=== PATIENT | female | born 1940 | race Caucasian/White ===

== ENCOUNTER → 2016-09-16 | Outpatient (CLI) | payer MEDICARE, OTHER ==
[~2016-09-16] MED LIST: ALPHAGAN-P5 ML OU; ALTACE DPS5 MG PO; ASA CHILDREN'S81 MG PO; CELEXA DPS20 MG PO; CITRACAL + D E1 EACH PO; FENOFIBRATE145 MG PO; FLEXERIL-DPS10 MG PO; MAALOX DPS30 ML PO; METFORMIN HCL500 M2 PO; NORCO 5-325 TA1 EACH PO; OMEGA-3 DPS1000 MG PO; OSTEO BI-FLEX1 EAC1 PO; OXY IR DPS5 MG PO; PROTONIX40 MG PO; TOPROL XL100 MG PO; TRICOR145 MG PO; TYLENOL DPS325 MG PO; ULTRAM DPS50 MG PO; ZOCOR DPS40 MG PO; ZYLOPRIM-DPS100 MG PO
== END | disposition home or self-care (01) ==
LOC: PTH.S 09:02
DX: Z01.818 Encounter for other preprocedural examination (principal)

== ENCOUNTER 2016-10-01 05:39 | Inpatient (IN) | payer MEDICARE, OTHER ==
[~2016-10-01] VITALS: Ht 165.1 cm; Wt 77.7 kg
--- NOTE | ~2016-10-01 | OR ---
ADMIT: 10/01/2016 RM/LOC: 526 [facility] MR#: [id number] [address] [address] JENNIFER SLATER [facility] [place] [address] Operative/Delivery Room Report SEX: F AGE: 76 : 1940 SURGERY DATE: 10/01/2016 SURGEON: Soto Michael MD ASSISTANTS: Puma Loyola PA-C and NAINA Dias PREOPERATIVE DIAGNOSIS: Left hip degenerative joint disease. POSTOPERATIVE DIAGNOSIS: Left hip degenerative joint disease. PROCEDURES: 1. Left anterior total hip arthroplasty. 2. Intra-articular block. ANESTHESIA: Spinal. COMPLICATIONS: None. ESTIMATED BLOOD LOSS: 200 mL. COMPONENTS: 1. 52-mm Gription Langtry cup. 2. 36-mm neutral AltrX liner. 3. 11-mm standard offset Corail stem. 4. +5, 36 mm metal head. DESCRIPTION OF PROCEDURE: The patient was taken to the operating room. The correct hip was identified and marked in the preop holding area. The preoperative leg lengths were documented. The patient received a spinal anesthetic. At that point, the patient had traction boots applied. The patient was placed on the OPAL operative table. A perfect fluoroscopic AP pelvis was obtained along with a perfect AP of the operative hip and printed for preoperative templating purposes. At that point, the left hip was prepped and draped in a standard fashion and an anterior approach was performed. An incision was made lateral and inferior to the anterior superior iliac spine extending distally. Dissection was carried through subcutaneous tissue down to the tensor fascia. The fibers of the tensor fascia were identified in oblique fashion. The tensor fascia was then opened up along its muscle fibers. An Allis clamp was placed on the anterior fascial border. The tensor muscle itself was then swept off with blunt dissection and retracted posteriorly. At that point, the rectus was elevated off the anterior hip capsule. The lateral circumflex vessels were identified and cauterized. A Cobra retractor was placed above the superior femoral neck to retract the tensor posteriorly. The rest of the rectus was elevated off the anterior hip capsule and a second retractor was placed around the medial femoral neck. An L-shaped capsulotomy was performed through the hip capsule down to the intertrochanteric line and extended along the intertrochanteric line to the level of the lesser trochanter. Tag stitches were placed in the medial and lateral border of the hip capsule. We also released the superior hip capsule ADMIT: 10/01/2016 RM/LOC: 526 [facility] MR#: [id number] [address] [place] [id number] NOHEMY JENNIFER A [address] [place] [address] Operative/Delivery Room Report SEX: F AGE: 76 : 1940 out of the trochanteric shoulder region. At that point, we placed our Cobra retractors in an intra-articular fashion for improved exposure to complete our capsular releases intra-articularly. A femoral neck cut was then made based on templating using the trochanteric shoulder as a bony landmark. We then externally rotated the hip 20 degrees for improved exposure and removed the femoral head from the acetabulum with no undue difficulty. Once the femoral head was removed, we again completed our capsular release around the inferior femoral neck to the level of lesser trochanter, released the superior capsule off the greater trochanteric shoulder in its entirety. We then placed slight traction on the femur in 20 degrees external rotation and placed a blunt-tip Cobra retractor over the anterior acetabular border. A second blunt Cobra was placed around the posterior acetabular border. All the remaining labrum was excised and an episiotomy performed to the inferior capsule to improve exposure. We cauterized the fovea and removed any remaining tissue in the depth of the acetabulum. We sequentially reamed the acetabulum under direct visualization up to a 51 mm size reamer. We elected to use a 52-mm size acetabular component. We put the acetabular component on a curved electric sign wirer and placed it within the depths of the acetabulum. At that point we removed all retractors; brought in fluoroscopy; and again obtained a perfect AP of the pelvis followed by a perfect AP of the hip. Under fluoroscopic guidance, we impacted the acetabular component in approximately 45 degrees of inclination and 20 degrees of anteversion. We had an excellent press fit and no supplemental screws were required. Any peripheral osteophytes were circumferentially removed around the acetabular component. A hole eliminator was placed in the acetabular component and a neutral 36-mm AltrX liner was impacted within the acetabular component. A partial intra-articular block was performed at this point in time. Once our acetabular preparation was completed, all the acetabular retractors were removed. We then exposed the femur by rotating it into neutral position and taking all traction off the femur. A femoral elevating hook was placed posterior to the trochanteric ridge. The foot was dropped down to 45 degrees and the leg maximally externally rotated no undue tension. We made sure our inferior capsular release was complete and placed a #1 retractor over the tip of the trochanter. Any remaining capsule was released off the tip of the trochanter and the piriformis tendon and a conjoined tendon were also released for exposure. At that point, you could feel the femur give, and we were able to elevate it up and out of the wound. The femur was externally rotated to approximately 120 degrees and the foot dropped to the floor as the leg was adducted. The trochanteric elevating hook was manually pulled in the anterior lateral direction as the elevating bar was raised to support it. At that point, we had excellent femoral exposure. A Karey retractor was placed over the tip of the trochanter and a femoral neck retractor around the medial calcar region to improve exposure. The proximal femur was opened with a box osteotome and a canal finder was used to identify the femoral canal. The proximal femur was sequentially broached up to an 11 mm Corail broach. We did over ream the distal canal to be sure we did not have a distal femoral fit. At that point, we left the broach in the canal and calcar planed the neck. We then reduced the hip with a standard off-set femoral neck and a +5 x 36-mm head. All the ADMIT: 10/01/2016 RM/LOC: 526 [facility] MR#: [id number] [address] [address] SLATERJENNIFER Jhonathan [address] [place] [address] Operative/Delivery Room Report SEX: F AGE: 76 : 1940 retractors and femoral hook were removed. Using manual traction, we were able to reduce the hip into the acetabulum with no undue difficulty. A perfect fluoroscopic AP of the pelvis followed by a perfect AP of the hip was obtained and appropriate leg length and offset were confirmed. We replaced our femoral elevating hook posterior to the trochanter. A bone hook and manual traction were used to dislocate the hip, again externally rotating the femur in its entirety as the foot was dropped to the floor and leg adducted. We removed the trial components, replaced a [place] retractor, and a femoral neck retractor. The broach was removed and the appropriate real components opened. We then impacted a size 11 mm standard offset Corail stem down the femoral canal with excellent press-fit. We impacted a +5 x 36 mm metal head on the trunnion. All retractors were removed, using manual traction the hip was reduced, and again was found to be stable. A final fluoroscopic AP pelvis and AP hip was obtained to confirm appropriate leg length, offset, and component positioning. We then irrigated out the wounds thoroughly and repaired the anterior capsular structures with #5 Ti-Cron. Our intra-articular block was completed including all soft tissues. The tensor fascia was repaired with a running and interrupted 0 Vicryl suture. We closed subQ with 2-0 Vicryl and ran a subcuticular Monocryl stitch. A Prineo hip wound dressing was applied and sterile dressings applied. The patient was taken off the HANA table, transferred to a standard OR bed, and taken to the recovery room in stable condition with no complications. Soto Michael MD/ melissa JOB #: [id number] CC: Soto Michael, Attending Physician Jose Blanca, Family Physician
[~2016-10-01 05:39] MED LIST changes: -ALPHAGAN-P5 ML OU; -FENOFIBRATE145 MG PO; -METFORMIN HCL500 M2 PO; -NORCO 5-325 TA1 EACH PO; -OSTEO BI-FLEX1 EAC1 PO; -OXY IR DPS5 MG PO; -PROTONIX40 MG PO; -ZYLOPRIM-DPS100 MG PO
--- NOTE | 2016-10-02 07:21 | CO ---
ADMIT: 10/01/2016 RM/LOC: [facility] MR#: [id number] [address] [address] JENNIFER SLATER [facility] [place] [address] Consultation Report SEX: F AGE: 76 : 1940 DATE OF CONSULTATION: 09/17/2016 ATTENDING PHYSICIAN: Soto Michael CONSULTING PHYSICIAN: Jose Blanca MD CHIEF COMPLAINT: Left hip pain. HISTORY OF PRESENT ILLNESS: Jennifer is a 76-year-old female, well known to me, who is seen today in the office for preoperative clearance for upcoming total hip replacement. She has severe pain in her left hip and has difficulty walking and ambulating. She is diagnosed with osteoarthritis of the hip by Dr. Michael and is scheduled for hip replacement on October 01. She has significant cardiac history and recently was evaluated by Cardiology and given clearance for surgery. She has history of cardiomyopathy, and according to the patient, her most recent echo showed her ejection fraction improving from 30% up to 35%. She has had pain in her hip for several years, but it has gotten quite a bit worse the last couple months to the point that she is not able to ambulate without a great deal of pain and it bothers her at night. PAST MEDICAL HISTORY: She was hospitalized last at [facility] in April 2015 with urinary tract infection and sepsis. Prior to that, she was hospitalized in June 2012 with sinusitis, urinary tract infection, and some confusion. She has had a previous non ST-elevation [place], 2003 and 2006. She had a stent and angioplasty in 2006. She had no events since then. She does have SA node dysfunction, permanent pacemaker, and along with a defibrillator. She has history of ischemic cardiomyopathy. Additionally, she has hypertension, hyperlipidemia, chronic back pain, osteoporosis, chronic gastroesophageal reflux. 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 Diabetes mellitus. Her last hemoglobin A1c 2 months ago was excellent at 6.4%. ALLERGIES: CRESTOR AND SULFA. CURRENT MEDICATIONS: 1. Allopurinol 100 mg daily. 2. Lopressor extended release 100 mg daily. 3. Altace 5 mg daily. 4. Metformin extended release 500 mg daily. 5. Protonix 40 mg daily. 6. Simvastatin 40 mg at bedtime. 7. Fenofibrate 145 mg at bedtime. 8. Flexeril 10 mg b.i.d. 9. Mobile 5/325, one at bedtime. 10.Tramadol 50 mg t.i.d. p.r.n., for pain. ADMIT: 10/01/2016 RM/LOC: [facility] MR#: [id number] [address] [place] [id number] JENNIFER SLATER [address] [place] [address] Consultation Report SEX: F AGE: 76 : 1940 11.Aspirin 162 mg p.o. daily. 12.Vitamin D with calcium daily. 13.Fish oil supplement 1000 mg b.i.d. 14.Osteo Bi-Flex b.i.d. 15.Glaucoma eye drops. SOCIAL HISTORY: She is . Does not drink alcohol or use tobacco. She does live alone, but has frequent family members that help care for her. She is retired. FAMILY HISTORY: Positive for coronary artery disease. REVIEW OF SYSTEMS: GENERAL: She has been doing well, not had any recent illness, fever, chills, etc. She did have an area on her left ring finger that has been red and swollen, and she got a little bit of pus out beside the fingernail the day when she squeezed it, and does not recall any trauma. HEENT: Denies any headache, blurry vision, or double vision. PULMONARY: No cough, chest pain, or shortness of breath. CARDIAC: History of hypertension, ischemic cardiomyopathy with implanted automatic defibrillator and pacemaker. Denies any recent chest pain or angina. She has had clearance by Cardiology for surgery. GI: Denies any problems at this time. She has had GERD in the past, but no recent symptoms. : Denies any urgency, frequency, or dysuria. Last month we did a urinalysis and urine culture, it was negative. MUSCULOSKELETAL: She has chronic back and chronic neck pain with loss of range of motion of her neck, and now the ongoing left hip pain as noted above. NEUROLOGICAL: She has prior history of confusion whenever she develops infection either respiratory or urinary tract infection, she gets confused related to sepsis. ENDOCRINE: Positive for diabetes type 2. The rest review of systems negative. PHYSICAL EXAMINATION: GENERAL: A 76-year-old female. She is alert, cooperative, and oriented x3. VITAL SIGNS: BP is 116/76, pulse 92, respiratory rate 20, temp 99.3, height 64 inches, weight 163 pounds. BMI 28. O2 saturation 93% on room air. HEENT: Eyes; PERRL. EOMs intact. TMs not seen. Throat is moist, not inflamed. NECK: Decreased range of motion with forward flexion, extension about 50% and normal. No pain or tenderness. LUNGS: Clear. Respirations not labored. HEART: Regular rate. No murmur. BREASTS: Not examined. ABDOMEN: Soft. No tenderness. /RECTAL: Deferred. EXTREMITIES: She does walk a little bit of a limp favoring her left hip. Range of motion of her hip is diminished. Range of motion of her neck as noted above ADMIT: 10/01/2016 RM/LOC: [facility] MR#: [id number] [address] [place] [id number] JENNIFER SLATER [address] [place] [id number] Consultation Report SEX: F AGE: 76 : 1940 is diminished. The left fourth digit on the medial aspect of the nail has some erythema and swelling. With gentle pressure, there was little bit of purulent discharge. LABORATORY DATA: She recently had a CBC done yesterday at the hospital, which showed a white count 5.4, hemoglobin 13.6, platelets 176,000. BMP; sodium 139, potassium 4.0, creatinine 1.0, glucose 184. EKG shows left axis deviation with normal sinus rhythm. Previous inferior infarct. Nonspecific ST-T changes. DIAGNOSTIC IMPRESSION: 1. Degenerative osteoarthritis, left hip. 2. Ankylosing vertebral hyperostosis of the neck. 3. Coronary artery disease. 4. Cardiac defibrillator. 5. Cardiomyopathy. 6. Diabetes mellitus type 2. 7. History of hyperlipidemia. 8. Hypertension, treated. 9. Paronychia, left fourth digit. PLAN The patient is okay for OR. She will have spinal block. Discussed postop deep vein thrombosis prophylaxis with her and we agreed upon aspirin for her deep vein thrombosis prophylaxis. She is planning on going home after surgery, and will have two or three family members there to help care for her. She was instructed to soak this area with warm soapy water b.i.d. for 20 minutes. She was placed on cefdinir 300 mg b.i.d. She is instructed that if this was not cleared up in a week, she should return to the office. It was emphasized with her that she needs to have this infection cleared before she could have surger Jose Blanca MD/ melissa JOB #: [id number] CC: Soto Michael, Attending Physician Jose Blanca, Family Physician
[2016-10-04] MEDS ORDERED: ZYLOPRIM-DPS100 MG PO (12:53)
[2016-10-04] MEDS ORDERED: METFORMIN HCL500 M2 PO (12:54)
[2016-10-04] MEDS ORDERED: PROTONIX40 MG PO (12:55)
[2016-10-04] MEDS ORDERED: FENOFIBRATE145 MG PO (12:55)
[2016-10-04] MEDS ORDERED: NORCO 5-325 TA1 EACH PO (12:56)
[2016-10-04] MEDS ORDERED: FLEXERIL-DPS10 MG PO (12:56)
[2016-10-04] MEDS ORDERED: OSTEO BI-FLEX1 EAC1 PO (12:58)
[2016-10-04] MEDS ORDERED: OXY IR DPS5 MG PO (12:59)
[2016-10-04] MEDS ORDERED: ALPHAGAN-P5 ML OU (12:59)
--- NOTE | 2016-10-29 21:06 | HP ---
ADMIT: 10/01/2016 RM/LOC: [facility] MR#: [id number] [address] [place] [phone] JENNIFER SLATER [address] [place] [address] Pre-OP History and Physical SEX: F AGE: 76 : 1940 DATE OF SERVICE: CHIEF COMPLAINT: Hip pain. HISTORY OF PRESENT ILLNESS: The patient is a 76-year-old female with long- standing history of left hip pain. Left hip pain is limiting her activity. She has been seen by Cardiology and primary care, now cleared for surgery. Left hip pain limits her activity. PAST MEDICAL HISTORY: Past medical problems include coronary artery disease, diabetes, arthritis. PAST SURGICAL HISTORY: Pacemaker, cataract, and tubal ligation. MEDICATIONS: Include: 1. Fish oil. 2. Aspirin. 3. Osteo Bi-Flex. 4. Allopurinol. 5. Simvastatin. 6. Metformin. 7. Metoprolol. 8. Tramadol. 9. TriCor. 10.Ramipril. 11.Protonix. ALLERGIES: TO SULFA. SOCIAL HISTORY: Denies any tobacco or alcohol use. REVIEW OF SYSTEMS: Negative. PHYSICAL EXAMINATION: Healthy-appearing female walks with antalgic gait on the left lower extremity. Pain with any motion of the left hip. We can internally rotate to 0, externally to 30. Legs are neurovascularly intact. ADMIT: 10/01/2016 RM/LOC: [facility] MR#: [id number] [address] [place] [phone] JENNIFER SLATER [facility] [place] [address] Pre-OP History and Physical SEX: F AGE: 76 : 1940 DIAGNOSTIC DATA: X-rays of AP and lateral shows advanced left hip arthritis and peripheral osteophytes. IMPRESSION: 1. Advanced left hip degenerative joint disease. 2. Coronary artery disease. 3. Diabetes. 4. Hypertension. PLAN: Talked about different options. She has now been cleared by Cardiology and primary care. Plan on doing a left anterior total arthroplasty. She is aware of different risks, benefits, and options and agreed to proceed. Soto Michael MD/ melissa JOB #: [id number] CC: Soto Michael, Attending Physician Jose Blanca, Family Physician
--- NOTE | 2016-10-29 21:06 | DS ---
ADMIT: 10/01/2016 RM/LOC: 526 [facility] MR#: [id number] [address] [address] JENNIFER SLATER [facility] [place] [address] General Discharge Summary SEX: F AGE: 76 : 1940 ADMISSION DATE: 10/01/2016 DISCHARGE DATE: 10/03/2016 REASON FOR ADMISSION: Elective left total hip arthroplasty after failing conservative care. PREOPERATIVE DIAGNOSIS: Left hip degenerative joint disease. POSTOPERATIVE DIAGNOSIS: Left hip degenerative joint disease. PROCEDURE PERFORMED: Left anterior total hip arthroplasty. SURGEON: Soto Michael MD. ASSISTANTS: 1. Puma Loyola PA-C. 2. NAINA Dias. ANESTHESIA: Spinal. COMPLICATIONS: None. ESTIMATED BLOOD LOSS: 200 mL. ACTIVE MEDICAL PROBLEMS: Coronary artery disease, diabetes, arthritis, hypertension, hyperlipidemia, chronic back pain, and chronic gastroesophageal reflux disease. HOSPITAL COURSE: The patient was admitted on 10/01/2016 for elective left anterior total hip arthroplasty done successfully by Dr. Michael without any complications. The patient tolerated the procedure well. Postoperatively, she complained of back pain and spasms, which she was given a heating pack for as well as pain medication and increase IV fluids. She did not complain of hip pain and was doing well with physical therapy. she did suffer from some mild acute blood loss anemia. Her hemoglobin dropped to 10.5 on 10/03/2016, but she remained hemodynamically stable and did not require blood transfusion. By postoperative day #2, she was safe and participating well with physical therapy, she was stable and ready for discharge home with plans for outpatient physical therapy exercises per anterior total hip arthroplasty protocol. DISCHARGE MEDICATIONS: 1. Allopurinol 100 mg every morning. 2. Altace 5 mg every morning. 3. Metoprolol succinate ER 100 mg every morning. 4. Metformin 500 mg every morning. 5. Pantoprazole 40 mg every morning. 6. Simvastatin 40 mg at bedtime. 7. Fenofibrate 145 mg at bedtime. ADMIT: 10/01/2016 RM/LOC: 526 [facility] MR#: [id number] [address] [id number] NOHEMY JENNIFER A [address] [place] [address] General Discharge Summary SEX: F AGE: 76 : 1940 8. Cyclobenzaprine 10 mg twice daily. 9. Alturas 5/325 mg at bedtime. 10.Tramadol 50 to 100 mg every 6 hours as needed for pain. 11.Aspirin 162 mg every morning. 12.Citracal plus D 315/250 mg every morning. 13.Fish oil 1000 mg twice daily. 14.Osteo Bi-Flex twice daily. 15.Brimonidine 0.5% one drop every morning both eyes. 16.Oxycodone IR 5 to 10 mg every 4 hours as needed for breakthrough pain. DISCHARGE INSTRUCTIONS: The patient was discharged home with plans for outpatient physical therapy exercises per anterior total hip arthroplasty protocol. Follow up in the orthopedic office in 2 weeks for wound check and 6 weeks with x-ray. Follow up with primary care as directed. NAINA Quintana / Soto Michael MD / melissa JOB #: [id number] CC: Soto Michael MD, Attending Physician Jose Blanca MD, Family Physician
== END 2016-10-03 12:05 | disposition home or self-care (01) | DRG 470 ==
LOC: 5MS 05:39 → WOR 05:39 → 5MS 09:51
PROVIDERS: ADMIT Orthopaedic Surgery
PROC: 0SRB02A Replacement of Left Hip Joint with Metal on Polyethylene Synthetic Substitute, Uncemented, Open Approach (ICD-10-PCS; principal; 2016-10-01)
DX: M16.12 Unilateral primary osteoarthritis, left hip (principal); E11.9 Type 2 diabetes mellitus without complications; I25.5 Ischemic cardiomyopathy; I25.10 Atherosclerotic heart disease of native coronary artery without angina pectoris; D62 Acute posthemorrhagic anemia; I10 Essential (primary) hypertension; E78.5 Hyperlipidemia, unspecified; G89.29 Other chronic pain; M54.9 Dorsalgia, unspecified; M81.0 Age-related osteoporosis without current pathological fracture; K21.9 Gastro-esophageal reflux disease without esophagitis; M48.13 Ankylosing hyperostosis [Forestier], cervicothoracic region; I25.2 Old myocardial infarction; Z79.84 Long term (current) use of oral hypoglycemic drugs; Z95.5 Presence of coronary angioplasty implant and graft; Z79.82 Long term (current) use of aspirin; Z95.810 Presence of automatic (implantable) cardiac defibrillator; Z82.49 Family history of ischemic heart disease and other diseases of the circulatory system